=== PATIENT | female | born 1955 | race Caucasian/White ===

== ENCOUNTER 2019-04-17 07:25 | Day surgery (SDC) | payer OTHER ==
[~2019-04-17] VITALS: Ht 142.2 cm; Wt 49.9 kg
[2019-04-17 07:47] VITALS: BP 136/70
[2019-04-17 11:26] VITALS: BP 134/75
== END 2019-04-17 10:50 | disposition home or self-care (01) ==
LOC: GI 07:25 → OR 08:30 → GI 10:50
DX: D50.8 Other iron deficiency anemias (principal); K63.89 Other specified diseases of intestine; E11.9 Type 2 diabetes mellitus without complications; Z98.890 Other specified postprocedural states; Z86.010 Personal history of colon polyps; Z90.49 Acquired absence of other specified parts of digestive tract; Z79.84 Long term (current) use of oral hypoglycemic drugs; Z79.899 Other long term (current) drug therapy
CPT/HCPCS: 45378; J1200; J1610; J2250; J2310; J3010; J3490